=== PATIENT | female | born 1990 | race Hispanic/Latino ===

== ENCOUNTER 2019-11-24 18:29 | Inpatient (IN) | payer BC, OTHER ==
[2019-11-24 19:14] VITALS: BMI 41.5
[2019-11-24] MEDS ORDERED: hydrALAZINE 20 MG/ML VIAL ONE (19:18)
[2019-11-24] MEDS ORDERED: hydrALAZINE 20 MG/ML VIAL SLOW IVP PRN ×2 (19:20→19:28)
[2019-11-24] MEDS ORDERED: NS / Oxytocin 40 units/1000ml 1,000 ML IV PRN (19:28)
[2019-11-24] MEDS ORDERED: HYDROcodone/Acetaminophen 5/325 mg Tablet PO PRN ×2 (19:28)
[2019-11-24] MEDS ORDERED: Ibuprofen 800 MG TAB PO PRN (19:28)
[2019-11-24] MEDS ORDERED: Lidocaine 1% (PF) 30 ML VIAL SC PRN (19:28)
[2019-11-24] MEDS ORDERED: Butorphanol Tartrate 1 MG/ML VIAL SLOW IVP PRN (19:28)
[2019-11-24] MEDS ORDERED: Promethazine HCl 25 MG/ML VIAL IM PRN (19:28)
[2019-11-24] MEDS ORDERED: Calcium Gluc 4.6 MEQ/10 ML (100 MG/ML) SLOW IVP PRN (19:28)
[2019-11-24] MEDS ORDERED: Ondansetron PF 4 MG/2 ML Vial IVP PRN (19:28)
[2019-11-24] MEDS ORDERED: Zolpidem Tartrate 5 MG TAB PO PRN (19:28)
[2019-11-24] MEDS ORDERED: Magnesium Sulfate 20 GM/WATER 500 ML BAG IVPB SCH (19:30)
--- NOTE | 2019-11-24 19:37 | PDOC.LDHP ---
Labor and Delivery H&P Chief complaint: other (c/o elevated BP) HPI: 29 WF c/o elevated BPs to 160-170/105-115 at home, denies WILBURN or visual changes. Current gestational age (weeks): 36 Dating criteria: last menstrual period Grav: 1 Para: 0 OB History Details: PNC with Dr. Walker, Labetalol started at 15 weeks. Current complications: other (as above) Abnormal US findings: No Current medications: pre-dwayne vitamins, other (Labetalol 200 BID) Previous surgical history: other (LEEP) Allergies/Adverse Reactions: Allergies Allergy/AdvReac Type Severity Reaction Status Date / Time No Known Allergies Allergy Unverified 11/24/19 19:07 Social history: none - Physical Exam Abnormal vital signs: BP 180/93, 211/100 General: resting Heart: RRR Lungs: CTAB Abdomen: gravid Extremeties: trace edema FHT: category 1 [place] contractions every: none seen - OB Labs GBS: unknown - Assessment 36 week IUP BPs currently in severe range - Plan Plan: admit to L&D, magnesium for seizure prophylaxis, other (Apresoline, labs ordered Will proceed with delivery Dr. Walker notified, he will manage.)
[2019-11-24 19:45] LABS: #Basophils 0.1 thou/uL (0.0-0.2); #Eosinphils 0.1 thou/uL (0.0-0.7); #Neutrophils 9.7 thou/uL (1.40-6.50); %Basophils 0.5 % (0.0-1.0); %Eosinophils 0.9 % (0.0-10.0); %Lymphocytes 21.4 % (21.0-51.0); %Monocytes 7.1 % (0.0-10.0); %Neutrophils 70.1 % (42.0-75.0); Mean Corpuscular HGB CONC 34.3 g/dL (32.0-36.0); Mean Corpuscular Hemoglobin 29.9 pg (27.0-31.0); Mean Corpuscular Volume 87.4 fL (78.0-98.0); Mean Platelet Volume 7.6 fL (7.4-10.4); Platelet Count 284 thou/uL (130-400); RBC Distribution Width 12.5 % (11.5-14.5); Red Blood Cell (RBC) Count 3.99 mill/uL (4.20-5.40); White Blood Cell (WBC) Count 13.9 thou/uL (4.8-10.8)
[2019-11-24] MEDS: Lactated Ringer's 1,000 ML IV SCH (19:52)
[2019-11-24 20:05] LABS: ALT (SGPT) 20 U/L (8-55); AST (SGOT) 17 U/L (5-34); Albumin 3.2 g/dL (3.5-5.0); Alkaline Phosphatase 108 U/L (40-110); Anion Gap 12 mmol/L (10-20); BUN (Urea Nitrogen) 6 mg/dL (7.0-18.7); Bilirubin, Total 0.4 mg/dL (0.2-1.2); Calc. Creatinine Clearance 305 mL/min (70-130); Calcium 9.5 mg/dL (7.8-10.44); Carbon Dioxide 25 mmol/L (22-29); Chloride 104 mmol/L (98-107); Estimated GFR-MDRD Greater than 90; Globulin 3.4 g/dL (2.4-3.5); Glucose 81 mg/dL (70-105); Protein, Total 6.6 g/dL (6.0-8.3); Sodium 138 mmol/L (136-145)
[2019-11-24] MEDS: hydrALAZINE 20 MG/ML VIAL SLOW IVP PRN (20:13)
[2019-11-24 20:22] LABS: HBSAg Index 0.15 S/CO (0-0.99); Hep B Surf Ag Non-Reactive S/CO (NonReactive); Syphilis Antibody Nonreactive (Nonreactive); Syphilis Antibody Index 0.04 S/CO (<1.00 Non-Reactive)
[2019-11-24] MEDS: Betamet Acet/Betamet Na Ph 30 MG/5 ML VIAL IM SCH (20:34)
--- NOTE | 2019-11-24 20:39 | PDOC.EVN ---
Event Note - Event Note Event Note: I met with patient and reviewed he symptoms and latest BP readings. Presentation is consistent with chronic hypertension, most likely now superimposed preeclampsia. I carefully reviewed any correlation with neurological symptoms - and patient denies all such symptoms - including WILBURN, [place], or changes in DTRs. BP currently improved to SPB 170s on magnesium and Hydralazine. Will try to get below severe BP threshold. I discussed the benefit of giving BMZ as long as she remains stable. She voices that she would prefer a vaginal delivery if possible. We will observe the patient for the next several hours, and try to allow time for BMZ to work. If her condition deteriorates, we will proceed with .
[2019-11-24 21:21] LABS: Creatinine, Urine 23.51 mg/dL (47-110); Protein, Urine Random Quant Less than 10 mg/dL (1-14)
[2019-11-24] MEDS: Acetaminophen 500 MG TAB PO PRN (23:24)
[2019-11-25] MEDS: Magnesium Sulfate 20 gm/500 ml 20 GM/500 ML BAG IVPB SCH ×3 (03:45→22:57)
[2019-11-25] MEDS: Acetaminophen 500 MG TAB PO PRN (08:11)
[2019-11-25] MEDS: Labetalol HCl 100 MG/20 ML VIAL SLOW IVP SCH ×2 (08:48→22:03)
[2019-11-25] MEDS: Metoclopramide HCl 10 MG/2 ML VIAL IVP SCH ×3 (09:38→11:08)
[2019-11-25] MEDS: diphenhydrAMINE 50 MG/ML VIAL IVP SCH ×2 (09:39→11:08)
[2019-11-25] MEDS: Misoprostol 100 MCG TAB VAG SCH ×3 (09:48→16:51)
[2019-11-25 11:48] LABS: SARS-CoV-2 MS2 Positive; SARS-CoV-2 N Gene Negative; SARS-CoV-2 S Gene Negative; SARS-CoV-2 by NAA Not Detected (NotDetected); SARS-CoV-2 orf1ab Negative
[2019-11-25] MEDS ORDERED: hydrALAZINE 20 MG/ML VIAL SLOW IVP PRN (19:21)
[2019-11-25] MEDS ORDERED: Simethicone Chewable 80 MG TAB PO PRN (19:21)
[2019-11-25] MEDS ORDERED: Ondansetron PF 4 MG/2 ML Vial IVP PRN ×2 (19:21→20:51)
[2019-11-25] MEDS ORDERED: Lanolin Ointment 7 GM TUBE TOP PRN (19:21)
[2019-11-25] MEDS ORDERED: HYDROcodone/Acetaminophen 5/325 mg Tablet PO PRN (19:21)
[2019-11-25] MEDS ORDERED: Bisacodyl 10 MG SUPP PR PRN (19:21)
[2019-11-25] MEDS: Betamet Acet/Betamet Na Ph 30 MG/5 ML VIAL IM SCH (19:25)
[2019-11-25] MEDS ORDERED: Bicitra 30 ML UDCUP PO SCH (19:30)
[2019-11-25] MEDS ORDERED: CEFAZOLIN 2 GM in Premix Bag 1 BAG IVPB SCH (19:30)
[2019-11-25] MEDS ORDERED: MORPHINE 5 MG/10 ML PF VIAL ONE (20:10)
[2019-11-25] MEDS ORDERED: Ketorolac Tromethamine 30 MG/ML VIAL ONE (20:11)
[2019-11-25] MEDS ORDERED: Oxytocin 10 UNITS/ML VIAL ONE (20:11)
[2019-11-25] MEDS ORDERED: Ondansetron PF 4 MG/2 ML Vial ONE (20:11)
[2019-11-25] MEDS ORDERED: PHENYLEPHRINE-NS 100 MCG/ML 10 ML SYRINGE ONE ×2 (20:11→20:37)
[2019-11-25] MEDS ORDERED: Dexamethasone 4 mg/ml Vial ONE (20:11)
[2019-11-25] MEDS ORDERED: EPHEDRINE 25 MG/5 ML SYRINGE ONE (20:35)
[2019-11-25] MEDS ORDERED: Promethazine HCl 25 MG/ML VIAL IM PRN (20:51)
[2019-11-25] MEDS ORDERED: Meperidine HCl/PF 25 MG/ML VIAL SLOW IVP PRN (20:51)
[2019-11-25] MEDS ORDERED: diphenhydrAMINE 50 MG/ML VIAL IVP PRN (20:51)
[2019-11-25] MEDS ORDERED: L&D-Morphine 4 MG/ML VIAL SLOW IVP PRN (20:51)
[2019-11-25] MEDS ORDERED: Naloxone HCl 0.4 mg/ml Vial IVP PRN ×2 (20:51)
[2019-11-25] MEDS ORDERED: Naloxone HCl 0.4 mg/ml Vial IV PRN (20:51)
[2019-11-25] MEDS ORDERED: HYDROmorphone 2 MG/ML VIAL SLOW IVP PRN (20:51)
[2019-11-25] MEDS ORDERED: Promethazine HCl 25 MG SUPP PR PRN (20:51)
[2019-11-25] MEDS ORDERED: Ondansetron HCl/PF 4 MG/2 ML Vial IVP PRN (20:51)
[2019-11-25] MEDS ORDERED: Communication Order-Pharmacy FS SCH (21:00)
[2019-11-25] MEDS: hydrALAZINE 20 MG/ML VIAL SLOW IVP PRN (23:06)
[2019-11-26 06:01] LABS: Hemoglobin 10.8 g/dL (12.0-16.0); Mean Corpuscular HGB CONC 33.7 g/dL (32.0-36.0); Mean Corpuscular Hemoglobin 29.6 pg (27.0-31.0); Mean Corpuscular Volume 87.7 fL (78.0-98.0); Mean Platelet Volume 7.3 fL (7.4-10.4); Platelet Count 279 thou/uL (130-400); RBC Distribution Width 12.5 % (11.5-14.5); Red Blood Cell (RBC) Count 3.64 mill/uL (4.20-5.40); White Blood Cell (WBC) Count 21.3 thou/uL (4.8-10.8)
[2019-11-26] MEDS: Lactated Ringer's 1,000 ML IV SCH (08:23)
[2019-11-26] MEDS: Ibuprofen 800 MG TAB PO SCH ×2 (08:23→18:08)
[2019-11-26] MEDS: Magnesium Sulfate 20 gm/500 ml 20 GM/500 ML BAG IVPB SCH ×2 (08:23→17:58)
[2019-11-26] MEDS ORDERED: Adacel (T-DAP) 0.5 ML SYRINGE IM ONE (09:00)
[2019-11-26] MEDS: Labetalol 100 MG TAB PO SCH (21:05)
[2019-11-26] MEDS: HYDROcodone/Acetaminophen 5/325 mg Tablet PO PRN (21:10)
--- NOTE | 2019-11-27 00:05 | PDOC.PP ---
Post Progress Note Post Day #: 1 PO intake tolerated: yes Flatus: yes Ambulation: yes Vital Signs (12 hours) Pulse BP 11/26/19 21:05 91 138/65 Weight Weight 290 lb - Physical Examination General: NAD Cardiovascular: no m/r/g, RRR Respiratory: clear to auscultation bilaterally, non-labored breathing Abdominal: + bowel sounds, no distention, appropriately TTP Extremities: negative homans (B) Skin: CS incision dry & intact, no rash Neurological: no gross focal deficits Psychiatric: A&Ox3, normal affect Result Diagrams: 11/26/19 05:54 11/24/19 19:26 Additional Labs: Post Labs Blood Type A POSITIVE 11/24/19 20:30 Hep Bs Antigen Non-Reactive S/CO (NonReactive) 11/24/19 19:34
--- NOTE | 2019-11-27 00:12 | PDOC.PP ---
Post Progress Note Post Day #: 2 PO intake tolerated: yes Flatus: yes Ambulation: yes Vital Signs (12 hours) Temp Pulse Resp BP BP Pulse Ox 11/26/19 23:18 98.4 F 82 20 123/67 96 11/26/19 21:05 91 138/65 Weight Weight 290 lb - Physical Examination General: NAD Cardiovascular: no m/r/g, RRR Respiratory: clear to auscultation bilaterally, non-labored breathing Abdominal: + bowel sounds, lochia, no distention, appropriately TTP Extremities: negative homans (B) Skin: CS incision dry & intact, no rash Neurological: no gross focal deficits Psychiatric: A&Ox3, normal affect (Pt doing well, now off Magnesium Sulfate, and back on Labetolol 200mg po BID, with good response.) Result Diagrams: 11/26/19 05:54 11/24/19 19:26 Additional Labs: Post Labs Blood Type A POSITIVE 11/24/19 20:30 Hep Bs Antigen Non-Reactive S/CO (NonReactive) 11/24/19 19:34
[2019-11-27] MEDS: Lactated Ringer's 1,000 ML IV SCH ×5 (00:16→20:44)
[2019-11-27] MEDS: Misoprostol 100 MCG TAB VAG SCH ×4 (00:16→02:10)
[2019-11-27] MEDS: Ketorolac Tromethamine 30 MG/ML VIAL IVP SCH ×2 (00:17→00:18)
[2019-11-27] MEDS: Docusate Calcium (SURFAK) 240 MG CAP PO SCH ×4 (00:17→20:44)
[2019-11-27] MEDS: Ibuprofen 800 MG TAB PO SCH ×4 (00:18→20:44)
[2019-11-27] MEDS: Metoclopramide HCl 10 MG/2 ML VIAL IVP SCH (00:19)
[2019-11-27] MEDS: HYDROcodone/Acetaminophen 5/325 mg Tablet PO PRN ×4 (04:31→17:05)
[2019-11-27] MEDS: Labetalol 100 MG TAB PO SCH ×2 (08:25→20:43)
[2019-11-28] MEDS: Ibuprofen 800 MG TAB PO SCH (05:09)
[2019-11-28] MEDS: HYDROcodone/Acetaminophen 5/325 mg Tablet PO PRN (05:12)
[2019-11-28] MEDS: Labetalol 100 MG TAB PO SCH (09:59)
[2019-11-28] MEDS: Docusate Calcium (SURFAK) 240 MG CAP PO SCH (09:59)
[2019-11-28] MEDS: Misoprostol 100 MCG TAB VAG SCH (10:00)
[2019-11-28 11:46] VITALS: BP 159/84; TEMP 99.4
--- NOTE | 2019-11-28 14:00 | PDOC.PP ---
Post Progress Note Post Day #: 3 PO intake tolerated: yes Flatus: yes Ambulation: yes Vital Signs (12 hours) Temp Pulse Resp BP BP Pulse Ox 11/28/19 11:45 99.4 F 91 20 159/84 H 11/28/19 09:59 93 157/83 H 11/28/19 08:14 98.9 F 93 20 157/86 H 99 11/28/19 05:35 98.2 F 86 18 154/81 H Weight Weight 290 lb - Physical Examination General: NAD Cardiovascular: no m/r/g Respiratory: clear to auscultation bilaterally, non-labored breathing Abdominal: + bowel sounds, lochia, no distention, appropriately TTP Extremities: negative homans (B) Skin: CS incision dry & intact, no rash Neurological: no gross focal deficits Psychiatric: A&Ox3, normal affect Result Diagrams: 11/26/19 05:54 11/24/19 19:26 Additional Labs: Post Labs Blood Type A POSITIVE 11/24/19 20:30 Hep Bs Antigen Non-Reactive S/CO (NonReactive) 11/24/19 19:34
--- NOTE | 2019-11-28 18:34 | OP ---
DATE OF PROCEDURE: 11/25/2019 TIME OF SERVICE: 2049 central daylight savings time. PREOPERATIVE DIAGNOSES: Intrauterine at 36 weeks and 3 days with severe preeclampsia, now with neurological symptoms including headache and vision changes. POSTOPERATIVE DIAGNOSES: Intrauterine at 36 weeks and 3 days with severe preeclampsia, now with neurological symptoms including headache and vision changes. PROCEDURE PERFORMED: Primary low-transverse section using a Pfannenstiel skin incision. FINDINGS: Viable male infant, weighing 3065 g or 6 pounds 12 ounces. Apgars of 8 and 8. QUANTITATIVE BLOOD LOSS: 530 mL. COMPLICATIONS: None. DETAILS OF THE PROCEDURE: The patient was consented and taken back to the operating room where spinal anesthesia was found to be adequate. She was then prepped and draped in the normal sterile fashion. A timeout was performed by the entire operative team. The incision was then marked with a marking pen tested using sharp pickups. An incision was then made with a scalpel. The incision was carried through the adipose tissue down to the underlying rectus fascia using both sharp dissection as well as cautery. Once the fascia was identified, it was incised in the midline and then the fascial incision was carried through in both lateral directions using sharp as well as cautery dissection techniques. Next, the superior aspect of the rectus fascia was grasped with 2 Maria Guadalupe clamps, which was tented up and the rectus muscles were dissected off using blunt dissection as well as cautery dissection. Similarly, the inferior aspect of the fascial incision was grasped with 2 Maria Guadalupe clamps, tented up and the rectus muscles were dissected off bluntly as well as sharply. Next, the rectus muscles were in the midline and the peritoneum identified. The peritoneum was then carefully grasped with 2 hemostats and entered sharply. The peritoneal incision was extended superiorly and inferiorly and bladder blade was placed in the lower abdomen. At this point, the uterus was identified and the bladder flap was then developed using pickups with teeth as well as Metzenbaum scissors in both lateral directions. The bladder flap was then dissected downwards using the sand cutting machine operator's finger as well as Metzenbaum scissors. The bladder blade was replaced. The lower uterine segment was then identified and entered sharply using a clean scalpel. The uterine incision was then dissected downwards until thin layer of muscle remained and this was entered bluntly using a hemostat to avoid any injury to the baby. The uterine incision was then stretched using two fingers in both lateral directions. An amniotomy was performed artificially using a hemostat and the baby was delivered using fundal pressure in a gentle fashion. Once out, the baby's mouth and nose were bulb suctioned, cord clamped and cut, and the baby was handed to waiting attendants. Next, the uterus was exteriorized, cleared of all clots and debris and the uterine incision was repaired with #1 Monocryl in a running locking fashion. A 2nd suture of the same type was used to obtain complete hemostasis at the uterine incision. The bladder flap was reapproximated using 3-0 Monocryl. Next, patient's left and right adnexa were inspected and appeared to be within normal limits. The posterior cul-de-sac was blotted dry and hemostasis assured. One more look at the uterine incision demonstrated hemostasis. Next, the uterus was replaced back within the abdomen. The peritoneum was reapproximated using 2-0 Monocryl without difficulty. The rectus muscles were then allowed to come back together and 0 chromic was used to aid in reapproximation of the muscle as necessary. The rectus fascia was then reapproximated in a running fashion using 0 Vicryl suture. The adipose tissue was then examined and appeared to be well approximated without any obvious separations. Finally, the skin was reapproximated with 3-0 Monocryl on a Ajay needle without difficulty and Dermabond adhesive was applied to the skin. Once the glue was dry, the drapes were removed and the patient was transferred to an ambulatory bed where she was taken to recovery awake and in stable condition. Sponge, lap, and needle counts were correct x3. Job ID: [id number]
== END 2019-11-28 14:11 | disposition home or self-care (01) | DRG 788 ==
LOC: L&D/OP 18:29 → L&D 19:28 → 3SW 11-26 23:35
PROVIDERS: ADMIT Obstetrics & Gynecology; ATTEND Obstetrics & Gynecology
PROC: 10D00Z1 Extraction of Products of Conception, Low, Open Approach (ICD-10-PCS; principal; 2019-11-25)
DX: O11.4 Pre-existing hypertension with pre-eclampsia, complicating childbirth (principal); Z3A.36 36 weeks gestation of pregnancy; Z37.0 Single live birth; Z20.828 Contact with and (suspected) exposure to other viral communicable diseases
CPT/HCPCS: 36415; 51702; 80053; 81003; 82570; 84156; 85025; 85027; 86780; 86850; 86900; 86901; 87340; 87635; 88307; 99285; J0360; J0595; J0702; J1100; J1200; J1885; J2274; J2405; J2590; J2765; J3475; U0003